=== PATIENT | male | born 1945 | race Caucasian/White ===

== ENCOUNTER 2016-10-22 09:25 | Inpatient (IN) | payer MEDICARE, BC ==
[~2016-10-22 09:25] MED LIST: ALEVE220 M3 PO; AMLODIPINE BESYL5 MG PO; ASPIRIN EC81 MG PO; CLARITIN10 M6 PO; HYDROCHLOROTHIA25 M1 PO; SILDENAFIL PO; TYLENOL EXTRA500 M1 PO; ULTRAM50 M1 PO; VITAMIN D31000 UNI3 PO
[2016-10-22 10:30] LABS: INR 1.1 INR (0.9-1.1); PROTHROMBIN TIME 12.2 SECONDS (9.0-13.6)
[2016-10-23 06:03] LABS: HGB-HEMOGLOBIN 11.8 gm/dl (13.5-17.0); LYMPH % 8.7 % (20-45); LYMPH ABSOLUTE COUNT 0.8 tho/cmm (0.8-4.5); MCH (MEAN CORPUSCULAR HGB) 32.2 pg (28.0-32.0); MCHC MEAN CORPUSCULAR HGB CONC 33.7 % (32.0-36.0); MCV (MEAN CELL VOLUME) 95.6 fl (82.0-96.0); MEAN PLATELET VOLUME 10.2 cmc (9.4-12.4); MONO % 7.2 % (0-12); MONOCYTE ABSOLUTE COUNT 0.7 tho/cmm (0.0-1.2); NEUTROPHIL ABSOLUTE COUNT 7.6 tho/cmm (1.6-8.0); NEUTROPHIL-AUTOMATED 7.6 tho/cmm (1.6-8.0); NEUTROPHILS % 84.1 % (40-80); PLATELET COUNT 117 tho/cmm (150-450); RED BLOOD COUNT 3.66 mil/cmm (4.40-5.70); RED CELL DISTRIBUTION WIDTH 12.5 % (12.4-16.4)
[2016-10-24] MEDS ORDERED: XARELTO10 M1 PO (10:25)
[2016-10-24] MEDS ORDERED: ASPIRIN81 M1 PO (10:26)
[2016-10-24] MEDS ORDERED: ROXICODONE5 M2 PO (10:28)
[2016-10-24] MEDS ORDERED: ULTRAM50 M1 PO (10:30)
[2016-10-24] MEDS ORDERED: TYLENOL325 M2 PO (10:32)
[2016-10-24] MEDS ORDERED: SENNA PLUS TAB1 EAC1 PO (10:33)
[2016-10-24] MEDS ORDERED: MOBIC7.5 M2 PO (10:34)
== END 2016-10-24 12:10 | DRG 470 ==
LOC: SHSB 09:25 → ORE 12:35 → PACU 14:24 → 5EA 15:40
PROVIDERS: ADMIT Orthopaedic Surgery Foot and Ankle Surgery
PROC: 0SRD0J9 Replacement of Left Knee Joint with Synthetic Substitute, Cemented, Open Approach (ICD-10-PCS; principal; 2016-10-22)
DX: M17.12 Unilateral primary osteoarthritis, left knee (principal); D69.6 Thrombocytopenia, unspecified; N52.9 Male erectile dysfunction, unspecified; Z79.82 Long term (current) use of aspirin; I10 Essential (primary) hypertension; Z86.711 Personal history of pulmonary embolism; Z79.01 Long term (current) use of anticoagulants
CPT/HCPCS: C1713; C1776; J0171; J0690; J1885; J2270; J2795